=== PATIENT | male | born 1955 | race Caucasian/White ===

== ENCOUNTER 2016-06-05 18:00 | Inpatient (IN) | payer MEDICARE ==
[~2016-06-05 18:00] MED LIST: DEPA500T PO; DEPA500T3 PO; LEVO.075 PO; MACR100C PO; MELA5TAB13 PO; NAME5TAB2 PO; SIMV20TA PO; ZYPR20TA PO
[2016-06-05] MEDS ORDERED: PROPOFOL 1000 MG/100 ML INJ 100 ML ONE (18:03)
[2016-06-05 18:07] VITALS: O2SAT 100
[2016-06-05] MEDS ORDERED: ETOMIDATE 20 MG/10 ML VIAL ONE (18:08)
[2016-06-05] MEDS ORDERED: ROCURONIUM INJ 50 MG/5 ML VIAL ONE (18:08)
[2016-06-05] MEDS ORDERED: DIPHTH/TETANUS/ACEL PERTUSSIS (BOOSTER) 0.5 ML VIAL/PFS IM ONE (18:08)
[2016-06-05] MEDS ORDERED: ceFAZolin 2 GM PREMIX 50 ML ONE (18:19)
[2016-06-05 18:24] LABS: AUTOMATED NEUTROPHIL # 12.1 TH/MM3 (1.8-7.7); BASOPHIL # 0.1 TH/MM3 (0-0.2); BASOPHIL % 0.5 % (0.0-2.0); EOSINOPHIL # 0.1 TH/MM3 (0-0.4); EOSINOPHIL % 0.4 % (0.0-4.0); HEMATOCRIT 31.1 % (39.0-51.0); HEMO FLAGS DIFF FINAL; LYMPH % 18.6 % (9.0-44.0); LYMPHOCYTE # 3.1 TH/MM3 (1.0-4.8); MEAN CORPUSCULAR HEMOGLOBIN 31.3 PG (27.0-34.0); MEAN CORPUSCULAR HGB CONC 33.6 % (32.0-36.0); MONO % 8.7 % (0.0-8.0); NEUT % 71.8 % (16.0-70.0); PLATELET COUNT 163 TH/MM3 (150-450); RED BLOOD COUNT 3.35 MIL/MM3 (4.50-5.90); RED CELL DISTRIBUTION WIDTH 13.7 % (11.6-17.2); WHITE BLOOD COUNT 16.9 TH/MM3 (4.0-11.0)
[2016-06-05 18:25] LABS: I-STAT POTASSIUM 3.3 MMOL/L (3.5-4.9)
[2016-06-05 18:27] VITALS: O2SAT 100
[2016-06-05] MEDS ORDERED: MAGNESIUM HYDROXIDE SUSP 30 ML CUP PO PRN (18:30)
[2016-06-05] MEDS ORDERED: SODIUM CHLOR 0.9% 1000 ML INJ 1,000 ML IV SCH (18:30)
[2016-06-05] MEDS ORDERED: CHLORHEXIDINE GLUCONATE 2 % 1 PACK (2 CLOTHS) TOP PRN (18:30)
[2016-06-05] MEDS ORDERED: ENALAPRILAT 1.25 MG/ML VIAL IV PRN (18:30)
[2016-06-05] MEDS ORDERED: PROPOFOL 1000 MG/100 ML INJ 100 ML IV SCH (18:30)
[2016-06-05] MEDS ORDERED: MISCELLANEOUS NURSING INFORMATION XX SCH (18:30)
[2016-06-05] MEDS ORDERED: fentaNYL DRIP 250 ML IV SCH (18:30)
[2016-06-05] MEDS ORDERED: SODIUM CHLORIDE 0.9% FLUSH 5 ML FLUSH IVF PRN (18:30)
[2016-06-05] MEDS ORDERED: ONDANSETRON HCL 4 MG/2 ML VIAL IV PRN (18:30)
[2016-06-05 18:35] LABS: APTT (PATIENT) 33.9 SEC (24.3-30.1); INTERNATIONAL NORMALIZED RATIO 1.3 RATIO; PROTHROMBIN TIME - PATIENT 14.5 SEC (9.8-11.6)
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
[2016-06-05] MEDS ORDERED: IOHEXOL 350 MG/ML 10 ML VIAL (for RAD DIAG) IV ONE (18:42)
[2016-06-05] MEDS ORDERED: ceFAZolin 2 GM PREMIX 50 ML IV ONE (18:45)
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
[2016-06-05 19:06] VITALS: O2SAT 100
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
[2016-06-05] MEDS ORDERED: NOREPINEPHRINE 4 MG/4 ML AMP ONE (19:14)
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
--- NOTE | 2016-06-05 19:23 | RADRPT ---
EXAM DATE/TIME: 06/05/2016 17:56 [facility] COMPARISON: No previous studies available for comparison. INDICATIONS : Trauma Alert MEDICAL HISTORY : Unobtainable SURGICAL HISTORY : Unobtainable ENCOUNTER: Initial ACUITY: 1 day PAIN SCORE: 0/10 LOCATION: Bilateral Chest FINDINGS: Endotracheal tube tip in satisfactory position. No pneumothorax. No effusion. CONCLUSION: 1. Endotracheal tube in satisfactory position. No focal consolidation or pneumothorax. Wayne Goldstein MD on June 05, 2016 at 19:20 Board Certified Radiologist. This report was verified electronically.
--- NOTE | 2016-06-05 19:24 | RADRPT ---
EXAM DATE/TIME: 06/05/2016 17:56 [facility] COMPARISON: No previous studies available for comparison. INDICATIONS : Trauma Alert MEDICAL HISTORY : Unobtainable SURGICAL HISTORY : Unobtainable ENCOUNTER: Initial ACUITY: 1 day PAIN SCORE: 0/10 LOCATION: Bilateral Pelvis FINDINGS: A single frontal view of the pelvis demonstrates comminuted right femoral neck fracture. Also fractur es of bilateral pubic bones and inferior pubic ramus and superior pubic ramus bilaterally. Longitudin al fracture sacrum. CONCLUSION: 1. Multiple pelvic fractures as above. Wayne Goldstein MD on June 05, 2016 at 19:21 Board Certified Radiologist. This report was verified electronically.
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
[2016-06-05] MEDS ORDERED: EPINEPHrine HCL (1:10,000) 1 MG/10 ML SYRINGE IV ONE (19:42)
[2016-06-05] MEDS ORDERED: SODIUM BICARBONATE 8.4% INJ 50 MEQ/50 ML SYR IV ONE (19:42)
[2016-06-05] MEDS ORDERED: CALCIUM CHLORIDE 10% SOLN 13.6 MEQ/10 ML SYR IV ONE (19:42)
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
--- NOTE | 2016-06-05 20:02 | PD.PROCEDR ---
Procedure Note Procedure Date: 06/05/16 Procedure: Cardiopulmonary resucitation Indication: Asystolic cardiac arrest Details of procedure: Called to bedside for CODE BLUE. RN team at bedside. Patient previously intubated in trauma bay and CPR ongoing. Pupils fixed and dilated upon my arrival. Nurses state that he developed few beat run of widened complex and then went into asystole. Per ACLS protocol pt received CPR, manual bag-valve ventilation via ETT, epinephrine x7, CaCl2 x1, bicarb x2 amps, 2 units PRBCs, 2 L of NS. He was shocked x5 for V fib. No PTX noted by ultrasound, sats reading 97% during compressions. No significant pericardial effusion noted. He was defibrillated x5 for V fib. After 25 minutes resuscitation unable to restore spontaneous circulation and bedside ultrasound demonstrated complete cardiac standstill. Pt was pronounced at 19:43 hours. Did not have family contact information, as patient is Norm. Efforts being made to locate family. Dr. Barnett notified. Miriam Galvez MD Jun 05, 2016 20:02
[2016-06-05] MEDS ORDERED: BACITRACIN TOP OINT 15 GM TUBE TOP SCH (21:00)
[2016-06-05] MEDS ORDERED: DOCUSATE SODIUM 100 MG CAP PO SCH (21:00)
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
[2016-06-06] MEDS ORDERED: CHLORHEXIDINE GLUCONATE 2 % 1 PACK (2 CLOTHS) TOP SCH (04:00)
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
== END 2016-06-05 19:43 | disposition expired | DRG 964 ==
LOC: NEPI 18:00 → MERGE 18:36 → NEDA 18:36 → EDBD 18:36 → N03B 19:15
PROVIDERS: ADMIT Emergency Medicine Emergency Medical Services; ATTEND Emergency Medicine Emergency Medical Services
PROC: 5A1935Z Respiratory Ventilation, Less than 24 Consecutive Hours (ICD-10-PCS; principal; 2016-06-05)
PROC: 5A12012 Performance of Cardiac Output, Single, Manual (ICD-10-PCS; 2016-06-05)
PROC: 0BH17EZ Insertion of Endotracheal Airway into Trachea, Via Natural or Artificial Opening (ICD-10-PCS; 2016-06-05)
DX: S06.5X9A Traumatic subdural hemorrhage with loss of consciousness of unspecified duration, initial encounter (principal); S32.501A Unspecified fracture of right pubis, initial encounter for closed fracture; S32.039A Unspecified fracture of third lumbar vertebra, initial encounter for closed fracture; S06.6X9A Traumatic subarachnoid hemorrhage with loss of consciousness of unspecified duration, initial encounter; I46.9 Cardiac arrest, cause unspecified; S72.141A Displaced intertrochanteric fracture of right femur, initial encounter for closed fracture; S72.001A Fracture of unspecified part of neck of right femur, initial encounter for closed fracture; S32.10XA Unspecified fracture of sacrum, initial encounter for closed fracture; S32.049A Unspecified fracture of fourth lumbar vertebra, initial encounter for closed fracture; S01.01XA Laceration without foreign body of scalp, initial encounter; S82.009A Unspecified fracture of unspecified patella, initial encounter for closed fracture; S82.141A Displaced bicondylar fracture of right tibia, initial encounter for closed fracture; S22.49XA Multiple fractures of ribs, unspecified side, initial encounter for closed fracture; S02.0XXA Fracture of vault of skull, initial encounter for closed fracture; Y92.410 Unspecified street and highway as the place of occurrence of the external cause; S30.0XXA Contusion of lower back and pelvis, initial encounter; V09.20XA Pedestrian injured in traffic accident involving unspecified motor vehicles, initial encounter
CPT/HCPCS: 12004; 31500; 36430; 51702; 70450; 70486; 71010; 71260; 72125; 72128; 72131; 72170; 73560; 74177; 82435; 82565; 82947; 84132; 84295; 84520; 85025; 85610; 85730; 86850; 86900; 86901; 86920; 90471; 90715; 92950; 96374; 96375; 96376; 99291; G0390; J0171; J0690; P9016; Q9967